=== PATIENT | male | born 1975 | race Two or more races ===

== ENCOUNTER 2017-04-28 00:04 | Inpatient (IN) | payer SELFPAY ==
[~2017-04-28] VITALS: Ht 154.9 cm; Wt 62.6 kg
[2017-04-28] VITALS (16 sets, daily range): BP systolic 105–137; BP diastolic 45–81
--- NOTE | 2017-04-28 00:11 | NUR ---
TO BED 4 BIB PARAMEDICS C/O OCCIPITAL SCALP LACERATION S/P GLF, (+) ETOH INTOXICATION/ PT AAOX4 NO ACUTE DISTRESS NOTED, RESP EVEN AND UNLABORED. PUPILS PERRL, PT ABLE TO MOVE ALL EXTREMITIES WELL WITH BILATERAL EQUAL RABBLE FURNACE TENDER. PLACE PT ON CARDIAC MONITORING, CONTINUOUS POX. ER MD AT BEDSIDE TO EVAL PT.
--- NOTE | 2017-04-28 00:26 | NUR ---
PT TRANSPORTED TO RADIOLOGY FOR CT HEAD.
[2017-04-28] MEDS ORDERED: TDAP [DIPH/PERTUSSIS/TET] 0.5 ML VIAL IM ONE ×2 (00:30→01:54)
--- NOTE | 2017-04-28 00:41 | NUR ---
PT BACK FROM RADIOLOGY. PENDING CT HEAD RESULT.
--- NOTE | 2017-04-28 00:54 | NUR ---
ER JT CHACKO AT BEDSIDE FOR SCALP LACERATION REPAIR.
[2017-04-28] MEDS ORDERED: IV NS 0.9% 1,000 ML BAG IV ONE (01:00)
[2017-04-28] MEDS ORDERED: IV SET PRIMARY 1 EA INFUS.SET MC ONE (01:08)
[2017-04-28] MEDS ORDERED: IV NS 0.9% 1,000 ML ONE (01:08)
[2017-04-28 01:16] LABS: BASOPHILS % (AUTO) 0.2 % (0.0-2.0); EOSINOPHILS % (AUTO) 0.1 % (0.0-6.0); HEMATOCRIT 43 % (39-51); LYMPHOCYTES # (AUTO) 2.6 /CMM (0.8-4.8); LYMPHOCYTES % (AUTO) 30.1 % (20.0-44.0); MEAN CORPUSCULAR HEMOGLOBIN 30 PG (26.0-33.0); MEAN CORPUSCULAR HGB CONC 35 g/dl (31.0-36.0); MEAN CORPUSCULAR VOLUME 85 fL (80-96); MONOCYTES # (AUTO) 0.5 /CMM (0.1-1.30); NEUTROPHILS # (AUTO) 5.4 /CMM (1.8-8.9); NEUTROPHILS % (AUTO) 63.6 % (43.0-81.0); PLATELET COUNT (AUTO) 155 /CMM (150-450); RED BLOOD CELL COUNT(AUTO) 5.03 MIL/uL (4.5-6.0); WHITE BLOOD COUNT (AUTO) 8.5 K/uL (4.3-11.0)
--- NOTE | 2017-04-28 01:18 | NUR ---
URINE SAMPLE COLLECTED AND SENT TO LAB.
[2017-04-28 01:27] LABS: APPEARANCE,URINE CLEAR (CLEAR); BILIRUBIN,URINE NEGATIVE (NEGATIVE); BLOOD, URINE 2+ Ery/uL (NEGATIVE); COLOR,URINE YELLOW (YELLOW); KETONES,URINE TRACE (NEGATIVE); LEUKOCYTE ESTERASE ,URINE NEGATIVE (NEGATIVE); NITRITE, URINE NEGATIVE (NEGATIVE); PH,URINE 5.5 (5.0-8.0); PROTEIN,URINE NEGATIVE (NEGATIVE); UGLUCOSE 3+ mg/dL (NEGATIVE); UROBILINOGEN,URINE 0.2 EU/dL (0.2)
[2017-04-28 01:32] LABS: ALANINE AMINOTRANSFERASE 57 U/L (12-78); ALBUMIN 4.2 g/dL (3.4-5.0); ALKALINE PHOSPHATASE 191 U/L (46-116); ASPARTATE AMINOTRANSFERASE 66 U/L (15-37); BILIRUBIN,TOTAL 0.4 mg/dL (0.2-1.0); CALCIUM, SERUM 8.8 mg/dL (8.5-10.1); CARBON DIOXIDE 25 mmol/L (21-32); CHLORIDE 92 mmol/L (98-107); SODIUM SERUM 136 mmol/L (136-145); TOTAL PROTEIN, SERUM 8.4 g/dL (6.4-8.2); UREA NITROGEN, BLOOD 6 mg/dL (7-18)
[2017-04-28 01:35] LABS: GLUCOSE 544 mg/dL (74-106); SALICYLATE 1.4 mg/dL (2.8-20.0)
[2017-04-28 01:47] LABS: BACTERIA,URINE None seen /HPF (None Seen); SQUAMOUS EPITHELIAL CELL,UR Few /HPF (None Seen); WBC,URINE 0-2 /HPF (0-3)
--- NOTE | 2017-04-28 02:25 | NUR ---
ER TALKING TO RADIOLOGIST REGARDING PT CT HEAD RESULT.
[2017-04-28] MEDS ORDERED: INSULIN REGULAR, HUMAN 100 UNIT in IV NS 0.9% 99 ML IV PRN ×4 (02:30→04:30)
--- NOTE | 2017-04-28 02:31 | NUR ---
ER SPOKE TO DR. CABRERA REGARDING PT ADMISSION.
--- NOTE | 2017-04-28 02:36 | NUR ---
PT TRANSPORTED TO RADIOLOGY FOR CT CERVICAL SPINE.
[2017-04-28] MEDS ORDERED: IV NS 0.9% 100 ML IV ONE (02:44)
[2017-04-28] MEDS ORDERED: IV SET PRIMARY PUMP SET 1 EA INFUS.SET MC ONE ×3 (02:44→10:13)
[2017-04-28] MEDS ORDERED: INSULIN REGULAR, HUMAN 100 UNIT/ML 10 ML VIAL ONE (02:44)
--- NOTE | 2017-04-28 02:44 | NUR ---
PT BACK FROM RADIOLOGY. PENDING CT CERVICAL RESULT.
[2017-04-28] MEDS ORDERED: ONDANSETRON HCL/PF 4 MG/2 ML VIAL ONE (03:17)
[2017-04-28] MEDS ORDERED: ONDANSETRON HCL/PF 4 MG/2 ML VIAL IV ONE (03:30)
--- NOTE | 2017-04-28 03:42 | NUR ---
PT ASLEEP, NO ACUTE DISTRESS NOTED, RESP EVEN AND UNLABORED. CALL LIGHT WITHIN REACH.
[2017-04-28] MEDS ORDERED: IV NS 0.9% 1,000 ML IV PRN (04:18)
[2017-04-28] MEDS ORDERED: MAGNESIUM HYDROXIDE 30 ML UDC PO PRN (04:30)
[2017-04-28] MEDS ORDERED: Z GUARD REMEDY 2 OZ OINT TP PRN (04:30)
[2017-04-28] MEDS ORDERED: LORAZEPAM INJ 2 MG/ML VIAL IV PRN (04:30)
[2017-04-28] MEDS ORDERED: HYDROCODONE/APAP 5/325MG 1 EACH TABLET PO PRN (04:30)
[2017-04-28] MEDS ORDERED: ACETAMINOPHEN 325 MG TABLET PO PRN (04:30)
[2017-04-28] MEDS ORDERED: ONDANSETRON HCL/PF 4 MG/2 ML VIAL IVP PRN (04:30)
[2017-04-28] MEDS ORDERED: MAG HYDROX/AL HYDROX/SIMETH 30 ML UDC PO PRN (04:30)
--- NOTE | 2017-04-28 04:47 | NUR ---
PT ASLEEP, EASILY AROUSABLE, NO ACUTE DISTRESS NOTED, RESP EVEN AND UNLABORED. CALL LIGHT WITHIN REACH.
[2017-04-28 05:30] LABS: CALCIUM, SERUM 8.3 mg/dL (8.5-10.1); CREATININE 0.6 mg/dL (0.6-1.3); POTASSIUM 3.7 mmol/L (3.5-5.1)
--- NOTE | 2017-04-28 05:42 | NUR ---
PT ASLEEP, EASILY AROUSABLE, NO ACUTE DISTRESS NOTED, RESP EVEN AND UNLABORED. CALL LIGHT WITHIN REACH.
--- NOTE | 2017-04-28 06:32 | NUR ---
PT MEDICALLY CLEARED BY DR. ALEXANDRE FOR C-SPINE PRECAUTION. HARD C-COLLAR REMOVED. ASLEEP IN BED W/ RESP EVEN & UNLABORED, EASILY AROUSABLE W/ NAD NOTED. ON CONTINUOUS CARDIAC MONITORING W/ INSULIN DRIP CONTINUE TO BE INFUSING, TITRATING PER PROTOCOL.
--- NOTE | 2017-04-28 07:11 | NUR ---
REPORT GIVEN TO TADEO JIMENEZ FOR [facility].
--- NOTE | 2017-04-28 08:03 | NUR ---
Report given to TADEO Staton for [facility] ICU 110
--- NOTE | 2017-04-28 08:40 | NUR ---
PATIENT PULLED OUT THE IV. Pressure and 4x4 applied to site. No bleeding noted. Addendum: 04/28/17 at 0850 by JAYLEN PULLED OUT THE IV AT LAC #18G
--- NOTE | 2017-04-28 09:00 | NUR ---
POLE FRAME CONSTRUCTION WORKER NOTES BELONGING LIST CHECKED BY VINH RUIZ , PT REFUSES TO PLACE MONEY ON THE SAFE ,
--- NOTE | 2017-04-28 09:19 | NUR ---
PT RANSPORTED TO ROOM 107. VSS
--- NOTE | 2017-04-28 09:20 | NUR ---
EP TECHNOLOGIST NOTES RECEIVED PATIENT FROM ER , WITH ADMITTING DX OF SUBDURAL HEMATOMA ,DKA , NOT IN ACUTE DISTRESS , DENIES SOB AND DISCOMFORT AT THIS TIME WITH SPO2 OF 98% VIA 2LPM NC , NEURO ASSESSMENT GATHERED , SR 85 ON BEDSIDE MONITOR , SKIN ASSESSMENT DONE , NOTED WITH SKIN TEAR AT SACRAL AREA , LACERATION ON THE HEAD WITH [address] , AND GENERALIZED PSORIASIS TOOK PICTURE AND PLACED IN THE CHART , ORDERED WOUND CONSULT , IV OF L HAND PATENT AND INTACT WITH INSULIN DRIP @ 2UNITS/HR INFUSING WELL , R HAND @ 18 PATENT AND INTACT SL , ALL NEEDS ATTENDED , BED ON LOW AND LOCKED POSITION , SIDE RAILS X2 CALL LIGHT WITHIN REACH , HOB @ 45 WILL CONTINUE TO MONITOR .
--- NOTE | 2017-04-28 09:26 | NUR ---
PROTOTYPE ENGINEER NOTES CALLED PHARMACY SPOKE WITH TOY TO VERIFY MEDICATIONS UPON ADMISSION
[2017-04-28] MEDS: PANTOPRAZOLE 40 MG TABLET.DR PO SCH (09:35)
--- NOTE | 2017-04-28 10:05 | NUR ---
ENVIRONMENTAL CONSERVATION PROFESSOR NOTES PAGED DR MAVIS ABERNATHY , SPOKE WITH HIM , NOTIFY PT BS OF 238 @ 0900 ON 2 UNITS INSULIN DRIP PER HOSPITAL PROTOCOL , ANION GAP OF 19 , DISCUSSED LABS UPON ADMISSION , HEAD CT , CHEST XRAY RESULT , MD AWARE , PER MD FOLLOW INSULIN DRIP PROCOL OF BS X 1.5/100 AND START NS @ 150ML/HR SWICH TO D5 1/2 WITH 20 MEQ KCL IF BS REACHED 125 BELOW , ORDERED CARRIED OUT
[2017-04-28 10:42] LABS: CALCIUM, SERUM 8.3 mg/dL (8.5-10.1); CREATININE 0.6 mg/dL (0.6-1.3); POTASSIUM 3.5 mmol/L (3.5-5.1)
[2017-04-28] MEDS: IV PREMIX D5 1/2NS + KCL 1,000 ML IV PRN (14:03)
[2017-04-28 14:52] LABS: CALCIUM, SERUM 7.9 mg/dL (8.5-10.1); CREATININE 0.5 mg/dL (0.6-1.3); POTASSIUM 3.4 mmol/L (3.5-5.1)
--- NOTE | 2017-04-28 15:00 | NUR ---
CRIMINOLOGY TEACHER NOTES PAGED DR MAVIS ABERNATHY VIA [employer] [facility] , SPOKE WITH HIM , NOTIFIED REPEAT BMP RESULT , BS OF 149 @ [id number] , PER MD DISCONTINUE INSULIN DRIP , GIVE LANTUS 10 UNITS X1 , AND DO Q4 AGGRESSIVE SLIDING SCALE AND ADD CCHO DIET , PT STABLE AT THIS TIME , NO N/V .
[2017-04-28] MEDS ORDERED: DEXTROSE 50%-WATER 50 ML DISP.SYRIN IV PRN (15:30)
[2017-04-28] MEDS ORDERED: INSULIN DETEMIR 100 UNIT/ML CARTRIDGE SQ ONE (17:00)
--- NOTE | 2017-04-28 17:00 | NUR ---
TECHNOLOGY ARCHITECT NOTES LEFT A MESSAGE FOR DR PRESLEY THAT PT WANTS TO TALK TO HER , AWAITING FOR CALL BACK
[2017-04-28] MEDS: BLOOD SUGAR DIAGNOSTIC 1 EACH STRIP IN SCH ×2 (17:27→21:52)
[2017-04-28] MEDS: INSULIN REGULAR, HUMAN 100 UNIT/ML 3 ML VIAL SQ PRN ×2 (17:29→21:54)
[2017-04-28 18:35] LABS: CALCIUM, SERUM 7.9 mg/dL (8.5-10.1); CREATININE 0.6 mg/dL (0.6-1.3); POTASSIUM 3.6 mmol/L (3.5-5.1)
--- NOTE | 2017-04-28 19:45 | NUR ---
RN INITIAL NOTE RECEIVED PT IN NO ACUTE DISTRESS IN BED. PT IS A/O X 3 AND ABLE TO MAKE NEEDS KNOWN. PT IS AFGHAN SPEAKING ONLY. PT IS ON O2 VIA NC @ 2LPM AND TOLERATING WELL. PT HAS FREQUENT NEUR CHECKS THAT ARE WNL. PT HAS 2CM LACERATION WITH 3 MARTINE THAT ARE INTACT. PT IS ON TELE WITH SR-SB ON THE MONITOR. PT HAS BRP AND IS ABLE TO AMBULATE AD ELIZABETH WITH STEADY GAIT. PT HAS L HAND 20G THAT IS CLEAN DRY INTACT AND PATENT WITH D51/2 NS WITH KCL @ 100ML/HR. PT HAS R HAND 18G THAT IS CLEAN DRY INTACT AND PATENT WITH SALINE FLUSH. BED IN LOW LOCK POSITION WITH RAILS UP X 2. CALL LIGHT WITHIN REACH AND ALL SAFETY MEASURES ENSURED AND CARRIED OUT. WILL CONTINUE TO MONITOR PT.
[2017-04-29] VITALS (12 sets, daily range): BP systolic 111–122; BP diastolic 64–83
[2017-04-29] MEDS: BLOOD SUGAR DIAGNOSTIC 1 EACH STRIP IN SCH ×3 (01:18→08:05)
[2017-04-29] MEDS: IV PREMIX D5 1/2NS + KCL 1,000 ML IV PRN (01:18)
[2017-04-29] MEDS: INSULIN REGULAR, HUMAN 100 UNIT/ML 3 ML VIAL SQ PRN ×2 (05:22→08:13)
--- NOTE | 2017-04-29 06:33 | NUR ---
RN CLOSING NOTE PT REMAINS IN NO ACUTE DISTRESS IN BED. PT DID NOT HAVE ANY SIGNIFICANT CHANGE IN CONDITION DURING SHIFT. ALL NEEDS MET ALL ORDERS CARRIED OUT. FREQUENT NEURO CHECKS PERFORMED AND WNL. PT NOT C/O ANY PAIN DURING SHIFT. WILL ENDORSE TO AM RN FOR CONTINUITY OF CARE.
[2017-04-29 06:40] LABS: BASOPHILS % (AUTO) 0.3 % (0.0-2.0); EOSINOPHILS # (AUTO) 0.1 /CMM (0.0-0.7); EOSINOPHILS % (AUTO) 0.9 % (0.0-6.0); HEMATOCRIT 38 % (39-51); HEMOGLOBIN 13.1 g/dL (13.5-17.5); LYMPHOCYTES # (AUTO) 1.8 /CMM (0.8-4.8); LYMPHOCYTES % (AUTO) 31.6 % (20.0-44.0); MEAN CORPUSCULAR HEMOGLOBIN 30 PG (26.0-33.0); MEAN CORPUSCULAR HGB CONC 35 g/dl (31.0-36.0); MEAN CORPUSCULAR VOLUME 85 fL (80-96); MONOCYTES # (AUTO) 0.4 /CMM (0.1-1.30); MONOCYTES % (AUTO) 7.9 % (2.0-12.0); NEUTROPHILS # (AUTO) 3.4 /CMM (1.8-8.9); NEUTROPHILS % (AUTO) 59.3 % (43.0-81.0); PLATELET COUNT (AUTO) 93 /CMM (150-450); RDW COEFFICIENT OF VARIATION 13.3 (11.5-15.0); RED BLOOD CELL COUNT(AUTO) 4.41 MIL/uL (4.5-6.0); WHITE BLOOD COUNT (AUTO) 5.7 K/uL (4.3-11.0)
[2017-04-29] MEDS: PANTOPRAZOLE 40 MG TABLET.DR PO SCH (06:40)
[2017-04-29 06:46] LABS: CALCIUM, SERUM 8.1 mg/dL (8.5-10.1); CREATININE 0.5 mg/dL (0.6-1.3); MAGNESIUM 1.9 mg/dL (1.8-2.4); PHOSPHORUS 3.4 mg/dL (2.5-4.9); POTASSIUM 3.2 mmol/L (3.5-5.1)
--- NOTE | 2017-04-29 07:20 | NUR ---
ICU/RN: PT RECEIVED, EYES CLOSED, NO DISTRESS NOTED. BREATHING EVEN AND UNLABORED. MARTINE ON POSTERIOR HEAD, C/D/I, WELL APPROXIMATED, NO S/S ACTIVE BLEEDING. NEURO CHECK PERFORMED, INTACT, ABLE TO FOLLOW COMMANDS, BILAT UPPER AND LOWER EXT STRENGTH NOTED. IVF INFUSING WELL. WILL CONT TO MONITOR PT.
--- NOTE | 2017-04-29 08:21 | NUR ---
WOUND CARE: PT EATING BREAKFAST AT THIS TIME. WILL SEE PT FOR SKIN ASSESSMENT LATER.
[2017-04-29 08:34] LABS: BAND % (MANUAL) 1 % (0.0-5.0); LYMPHOCYTES % (MANUAL) 31 % (16-48); MONOCYTES % (MANUAL) 5 % (0-11.0); NEUTROPHILS % (MANUAL) 63 (42-76)
--- NOTE | 2017-04-29 08:57 | NUR ---
WOUND CARE CONSULT: PT PRESENTS WITH PSORIASIS AND SOME DRY SCRATCHES/ABRASIONS ON SKIN. PT IS CONTINENT AND AMBULATORY. DEFER TO MD FOR PSORIASIS. WILL SEE PRN.
--- NOTE | 2017-04-29 12:35 | NUR ---
WHITLEY/RN: PT LEFT AMA, PER PT "I REALLY NEED TO GO HOME, MY SISTER NEEDS HELP. I CAN'T WAIT FOR THE DOCTOR ANYMORE." EDUCATED PT ON RISKS OF LEAVING AMA VIA HEBREW SPEAKING CORPORATE STRATEGIST, VERBALIZED UNDERSTANDING YET STILL INSISTS ON LEAVING. EXPLAINED TO PT NEED TO F/U WITH PMD SOON POSSIBLE, MONITOR HEAD MARTINE FOR S/S INFECTION, WOUND CARE. VERBALIZED UNDERSTANDING. REMAINS NEUROLOGICALLY INTACT. DENIES PAIN AND DISCOMFORT. AMA PAPERWORK SIGNED, REFUSED TO SIGN OTHER PAPERWORK PT STATES "I HAVE TO GO NOW." AMBULATED WITH STEADY GAIT TO [facility]. SONOGRAPHY TECHNOLOGIST SOON AND DR PRESLEY NOTIFIED. Addendum: 04/29/17 at 1324 by BRANDEN ASTUDILLO RN Unique Id: [id number]
== END 2017-04-29 13:18 | disposition left against medical advice (07) | DRG 85 ==
LOC: ER 00:07 → ICUOV 06:40 → TELE-TD 04-29 10:15
PROVIDERS: ADMIT Internal Medicine; ATTEND Internal Medicine
PROC: 0HQ0XZZ Repair Scalp Skin, External Approach (ICD-10-PCS; principal; 2017-04-28)
DX: S06.5X0A Traumatic subdural hemorrhage without loss of consciousness, initial encounter (principal); E13.10 Other specified diabetes mellitus with ketoacidosis without coma; S01.01XA Laceration without foreign body of scalp, initial encounter; F10.129 Alcohol abuse with intoxication, unspecified; Z59.0 Homelessness; R74.0 Nonspecific elevation of levels of transaminase and lactic acid dehydrogenase [LDH]; K70.9 Alcoholic liver disease, unspecified; X58.XXXA Exposure to other specified factors, initial encounter; Y93.9 Activity, unspecified; Y92.9 Unspecified place or not applicable; Y90.8 Blood alcohol level of 240 mg/100 ml or more
CPT/HCPCS: 36415; 70450-TC; 71010-TC; 72125-TC; 80048-TC; 80053-TC; 80305; 81000-TC; 82010-TC; 82962-TC; 83735-TC; 84100-TC; 85025-TC; 87081-TC; 90715; A4606; A6402; G0480; J1815; J2405; J3490; J7030; L0172; Z7610

== ENCOUNTER 2017-05-09 08:54 | Emergency (ER) | payer SELFPAY ==
[~2017-05-09] VITALS: Ht 162.6 cm; Wt 68.0 kg
[2017-05-09 08:59] VITALS: BP 119/72
== END 2017-05-09 09:18 | disposition home or self-care (01) ==
LOC: ER 08:56
DX: S01.00XD Unspecified open wound of scalp, subsequent encounter (principal)
CPT/HCPCS: A4606; Z7502; Z7610